=== PATIENT | female | born 1960 | race Two or more races ===

== ENCOUNTER 2023-08-10 15:53 | Emergency (ER) | payer OTHER ==
[2023-08-10 16:02] VITALS: BP 114/75; PULSE 85; RESP 16; TEMP 97.9; BMI 27.9
[2023-08-10] MEDS ORDERED: IBUPROFEN 600 MG TABLET (FP) PO ONE (17:19)
[2023-08-10] MEDS: IBUPROFEN 600 MG TABLET (FP) PO ONE (17:24)
== END 2023-08-10 18:07 | disposition home or self-care (01) ==
LOC: JERFT 15:53
DX: M25.561 Pain in right knee (principal); W01.0XXA Fall on same level from slipping, tripping and stumbling without subsequent striking against object, initial encounter
CPT/HCPCS: 73562-TC-RT-FY; 99283-25